=== PATIENT | male | born 1990 | race Caucasian/White ===

== ENCOUNTER 2021-02-03 18:58 | Emergency (ER) | payer MEDICAID ==
[~2021-02-03] VITALS: Ht 170.2 cm; Wt 83.6 kg
[2021-02-03 19:30] VITALS: BP 102/74
[2021-02-03] MEDS ORDERED: LIDOCAINE 5% TRANSDERMAL PATCH TD ONE (20:15)
[2021-02-03] MEDS ORDERED: ACETAMINOPHEN 325 MG TABLET PO ONE (20:15)
[2021-02-03] MEDS ORDERED: IBUPROFEN 400 MG TABLET PO ONE (20:15)
== END 2021-02-03 21:00 | disposition home or self-care (01) ==
LOC: EMS 18:58
DX: S06.0X9A Concussion with loss of consciousness of unspecified duration, initial encounter (principal); V49.9XXA Car occupant (driver) (passenger) injured in unspecified traffic accident, initial encounter; Y93.89 Activity, other specified; Y92.89 Other specified places as the place of occurrence of the external cause; Y99.8 Other external cause status
CPT/HCPCS: 99284; Z7502; Z7610